=== PATIENT | male | born 1960 | race African-American/Black ===

== ENCOUNTER 2021-12-03 16:31 | Emergency (ER) | payer MEDICAID ==
[~2021-12-03] VITALS: Ht 175.3 cm; Wt 72.6 kg
--- NOTE | 2021-12-03 17:50 | NUR ---
PATIENT WAS MSE BY DR DONG.
--- NOTE | 2021-12-03 18:09 | NUR ---
Patient discharged to home in stable condition. Written and verbal after care instructions given. Patient verbalizes understanding of instructions. Stressed follow up or return to ER for worsening s/s. SECURITY CALLED REFUSE TO LEAVE FACILITY.
== END 2021-12-03 18:13 | disposition home or self-care (01) ==
LOC: ER 16:32
DX: K40.90 Unilateral inguinal hernia, without obstruction or gangrene, not specified as recurrent (principal)
CPT/HCPCS: A4663

== ENCOUNTER → 2021-12-03 | Emergency (ER) | payer SELFPAY | END | disposition left against medical advice (07) | LOC: ER 15:22 | DX: Z53.21 Procedure and treatment not carried out due to patient leaving prior to being seen by health care provider (principal) ==